=== PATIENT | male | born 1995 | race Two or more races ===

== ENCOUNTER 2019-04-07 16:33 | Emergency (ER) | payer OTHER, SELFPAY ==
[2019-04-07] MEDS ORDERED: Ibuprofen 600 MG TAB ONE (16:47)
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
== END 2019-04-07 17:20 | disposition home or self-care (01) ==
LOC: MADERS 16:33
DX: S53.402A Unspecified sprain of left elbow, initial encounter (principal); S93.402A Sprain of unspecified ligament of left ankle, initial encounter; S56.912A Strain of unspecified muscles, fascia and tendons at forearm level, left arm, initial encounter; V43.52XA Car driver injured in collision with other type car in traffic accident, initial encounter